=== PATIENT | female | born 1980 | race Caucasian/White ===

== ENCOUNTER 2018-10-07 07:30 | Inpatient (IN) | payer OTHER, SELFPAY ==
[2014-10-24 09:20] VITALS: BMI 35.1
[2018-10-07 07:42] VITALS: BMI 39.0
[2018-10-07] MEDS: Lactated Ringers 1,000 ML 50 ML IV (07:45)
[2018-10-07 07:57] LABS: Absolute Neutrophil Count 10.9 X10^3/uL (2.0-7.7); Absolute Nucleated RBC Count 0.02 10^3/uL (0-5); Basophil# 0.05 X10^3/uL; Basophil% 0.4 % (0-1); Eosinophil# 0.03 X10^3/uL; Eosinophils% 0.2 % (0-5); Hematocrit 28.5 % (37-47); Hemoglobin 8.4 g/dL (12.0-15.0); Lymphocyte % 12.1 % (19-41); Mean Corp Hgb Conc 29.5 g/dL (32-36); Mean Corpuscular Hgb 21.1 pg (27.0-32.0); Mean Corpuscular Volume 71.6 fL (81-99); Mean Platelet Vol. 11.7 fl (6.2-12.0); Monocyte# 0.58 X10^3/uL; Monocyte% 4.4 % (0-10); NRBC Flagged by Analyzer 0.2 % (0-5); Neutrophil # 10.85 X10^3/uL (2.7-7.7); Neutrophil % 82.2 % (47-70); Platelet Count 250 K/mm3 (150-450); RBC Distribution Width CV 16.2 % (11.6-14.6); RBC Distribution Width SD 41.4 fl (35.1-43.9); Red Blood Count 3.98 M/mm3 (4.2-5.4); White Blood Count 13.2 K/mm3 (4.4-11.0)
[2018-10-07] MEDS: Oxytocin 30 units/NS 500 ml 30 UNITS/500 ML IV.SOLN 334 UNITS IV (09:01)
--- NOTE | 2018-10-07 09:10 | OP.PCM_ITS ---
Vaginal Delivery Maternal Presentation: Active Labor Amniotic Membrane Rupture Type: Artificial Amniotic Fluid Description: Clear Final CARLOS: 10/05/18 Gestational age: 40 Weeks and 2 Days Date of Procedure: 10/07/18 Pre-Operative Diagnosis: IUP Post-Operative Diagnosis: IUP Surgery/ Procedure Performed: Spontaneous Vaginal Delivery Type of Anesthesia: None Description of Procedure: Spontaneous vaginal delivery of a viable female infant with Apgars of 9/9 from an occiput anterior presentation with clear amniotic fluid and normal three- vessel placenta. No episiotomy or laceration. Sponges okay. Delivery physician: Efrain Woodson MD. Presentation: Vertex Placental Delivery Description: Spontaneous Placenta Disposition: [facility] Cord Vessel Description: 3 Vessels Cord Gases drawn per routine: ABG Cord Entanglement: Around neck x 1, tight Estimated Blood Loss: 250 cc Infant A gender: Female (1 minute): 9 (5 minute): 9 Episiotomy Description: None Laceration: None Medications given after delivery: IV Pitocin Complications: None
--- NOTE | 2018-10-07 09:16 | DCINST_ITS ---
Discharge Diet: No Restrictions Discharge Activity: May Shower, May Take a Tub Bath May resume sexual activity in: 4-6 weeks Additional Activity Instructions:: Nothing in the vagina for 4-6 weeks. You may return to work/school in 6 weeks. Call your doctor if you observe: Fever of 101 or Higher, Inability to urinate, Inability to have a bowel movement, Using more than one pad per hour Additional Instructions: If you experience any of the following, contact your healthcare provider. * Bleeding that soaks a pad every hour for 2 hours * Unrelieved incision or abdominal pain * Swelling, redness, discharge or bleeding from your incision or episiotomy site * Your incision begins to separate * Problems urinating (including inability to urinate or burning while urinating). * Visual changes * Severe headache * Flu-like symptoms * Pain or redness in one of both of your breasts * Pain, warmth, tenderness or swelling in your legs, especially the calf area * Frequent nausea and vomiting * Symptoms of depression or anxiety If you experience any of the following, call 911 or go to the nearest Emergency Room. * Chest pain * Problems breathing * Seizure activity * Partial or complete paralysis of a body part, slurred speech, weakness or drooping of the face, or a sudden inability to walk or hold your balance Allergies/Adverse Reactions: Allergies budesonide [From Entocort EC] Allergy (Verified 10/07/18 07:43) Abd cramps/diarrhea oseltamivir phosphate [From Tamiflu] Allergy (Verified 10/07/18 07:43) Nausea/Vom/Diarrhea tramadol Allergy (Verified 10/07/18 07:43) Itching Medications to take at Discharge L.acidoph,Paracasei, B.lactis [Probiotic] 1 each PO 10/24/14 Pantoprazole Sodium 40 mg PO DAILY 10/24/14 Papaya [Papaya Enzyme] 1 each PO 10/24/14 Vits [Prenatabs FA ] 1 tablet PO DAILY 10/24/14 Please Follow Up With: Efrain Woodson MD - [phone] When: Call to make an appointment with your doctor in 6 weeks. Primary Care Physician: Clayton oTrres DO [Primary Care Provider] - Test Results: Test results from this visit will be discussed in further detail at your follow- up appointment, if applicable.
[2018-10-07] MEDS: Oxytocin 30 units/NS 500 ml 30 UNITS/500 ML IV.SOLN 167 UNITS IV (09:31)
[2018-10-07 11:12] VITALS: BP 124/58; PULSE 62; RESP 16; TEMP 37.2
[2018-10-07] MEDS: 0.9% Saline Lock 10 ML Syringe IV (11:19)
[2018-10-07 15:15] VITALS: BP 103/51; PULSE 73; RESP 14; TEMP 37.4
[2018-10-07 20:50] VITALS: BP 126/47; PULSE 57; RESP 16; TEMP 36.9
[2018-10-07] MEDS: Acetaminophen 500 MG Tablet 1000 MG PO (23:09)
[2018-10-08 01:20] VITALS: BP 123/63; PULSE 58; RESP 16; TEMP 36.9
[2018-10-08 04:05] VITALS: BP 128/56; PULSE 61; RESP 16; TEMP 36.7
[2018-10-08 07:55] VITALS: BP 121/62; PULSE 70; RESP 16; TEMP 36.4; O2SAT 99
[2018-10-08 14:00] VITALS: BP 121/60; PULSE 70; RESP 16; TEMP 36.9; O2SAT 98
[2018-10-08] MEDS: Dibucaine 30 GM Tube 1 APPLIC TOPICAL (17:47)
--- NOTE | 2018-10-08 18:17 | PCM.PN.OB ---
Subjective: Patient without complaints. Breast-feeding going well. Wants to go home later today if baby is able to go. - Physical Exam Vital Signs Temp Pulse Resp BP Pulse Ox 98.4 F 70 16 121/60 H 98 10/08/18 14:00 10/08/18 14:00 10/08/18 14:00 10/08/18 14:00 10/08/18 14:00 Oxygen Delivery Method Room Air Weight: 200 lb Body Mass Index (BMI) 39.0 Intake and Output for Last 24 Hours 10/06/18 10/07/18 10/08/18 23:59 23:59 23:59 Output Total 600 / 600 Balance -600 / -600 Medical Necessity - Tobacco Use Smoking Status: Former smoker Assessment/Plan Doing well day #1 status post routine spontaneous vaginal delivery. Will release to home later today.
[2018-10-08 20:06] VITALS: BP 135/74; PULSE 66; RESP 16; TEMP 36.6; O2SAT 98
== END 2018-10-08 21:15 | disposition home or self-care (01) | DRG 807 ==
PROVIDERS: Admitting Provider Obstetrics & Gynecology; Family Provider Family Medicine; PCP Family Medicine; Referring Provider Obstetrics & Gynecology; Visit Provider Obstetrics & Gynecology
DX: O69.1XX0 Labor and delivery complicated by cord around neck, with compression, not applicable or unspecified (principal); Z37.0 Single live birth; O99.820 Streptococcus B carrier state complicating pregnancy; Z3A.40 40 weeks gestation of pregnancy; Z87.891 Personal history of nicotine dependence
CPT/HCPCS: 59025; 59050; 85025; 86850; 86870; 86900; 86902; 86905; 86920; 86922; 99218; J7120; A4216; G0378

== ENCOUNTER → 2020-08-03 16:53 | Outpatient (CLI) | payer OTHER, SELFPAY ==
[2020-08-07 20:30] LABS: HPV Reflexed? NOT INDICATED
== END ==
PROVIDERS: PCP Family Medicine; Visit Provider Obstetrics & Gynecology
DX: Z12.4 Encounter for screening for malignant neoplasm of cervix (principal)
CPT/HCPCS: 88175; G0145

== ENCOUNTER 2020-11-02 11:24 | Emergency (ER) | payer OTHER, SELFPAY ==
[2020-11-02 11:25] VITALS: BP 127/73; PULSE 100; RESP 18; TEMP 36.6; O2SAT 98; BMI 36.1
--- NOTE | 2020-11-02 12:05 | EX.ED.DYSGE1 ---
HPI History of Present Illness Chief Complaint: Shortness of Breath Informant: patient Narrative Narrative: Patient is a 41-year-old female with a past medical history of Crohn's disease who presents to the emergency department for suspected Covid infection. She states that her tested positive and her children have similar symptoms. She has not been vaccinated. She has had a severe cough that is mostly dry. He has been having body aches, headache, nausea/vomiting. She has been taking Phenergan and Zofran at home. The Zofran seems to make her heartburn worse. She has lost 12 pounds. Her PCP was concerned she is dehydrated so sent her into the emergency department. Patient states that her problem is currently are at her baseline. She denies any urinary symptoms. Her PCP did put her on prednisone. [facility] Medical History (Updated 11/02/20 @ 14:[address] Bertram Carne DO) Crohn disease Home Medications L.acidoph, paracasei,B. lactis 1 ea PO 10/24/14 [History Last Taken Unknown] Pantoprazole Sodium 40 mg PO DAILY 10/24/14 [History Last Taken 10/23/14 10:00 1] carica papaya [Papaya Enzyme] 1 ea PO 10/24/14 [History Last Taken 10/23/14 18:00 1] [id number] [Prenatabs FA] 1 tab PO DAILY 10/24/14 [History Last Taken 10/23/14 10:00 1] promethazine 25 mg PO Q6H PRN 3 Days #10 tab 11/02/20 [Rx Last Taken Unknown] Allergy/AdvReac Type Severity Reaction Status Date / Time budesonide [From Entocort EC] Allergy Abd Verified 11/02/20 11:28 cramps/diarrhea oseltamivir phosphate Allergy Nausea/Vom/ Verified 11/02/20 11:28 [From Tamiflu] Diarrhea tramadol Allergy Itching Verified 11/02/20 11:28 Social History Smoking Status: Former smoker ROS ROS ED Constitutional Constitutional ED: Reports chills and fever(s) Eyes Eyes: Denies change in vision ENT ENT ED: Denies epistaxis Cardiovascular Cardiovascular: Denies chest pain or palpitations Respiratory/Chest Respiratory/Chest: Reports cough; Denies dyspnea or dyspnea on exertion Gastrointestinal Gastrointestinal: Reports nausea and vomiting; Denies abdominal pain or diarrhea Genitourinary Genitourinary ED: Denies dysuria or urinary frequency Musculoskeletal Musculoskeletal: Denies back pain or neck pain Integumentary Denies rash Neurologic Neurologic: Reports headache(s); Denies dizziness or weakness EXAM Physical Exam Const Vital Signs: 11/02/20 11:25 11/02/20 13:25 11/02/20 13:55 Temperature 97.9 F Temperature Source Temporal Pulse Rate 100 85 Respiratory Rate 18 16 Respiratory Effort Normal Non-Labored Respiratory Depth Normal Respiratory Pattern Normal Blood Pressure 127/73 H 119/74 Blood Pressure Mean 91 89 Pulse Ox 98 99 Oxygen Delivery Method Room Air Room Air Room Air Positive well nourished and well developed General Appearance ED: well developed and NAD HEENT Reports normocephalic and head/scalp atraumatic Eyes PERRL and EOMs intact bilaterally Neck supple Chest Wall inspection of chest normal Resp normal respiratory effort and clear to auscultation bilaterally Auscultation: Negative for rales, rhonchi or wheezes Cardio regular rate, regular rhythm and no murmurs GI normal to inspection, nondistended, normoactive bowel sounds and non-tender Palpation: soft; Negative for guarding or rebound tenderness present Extremity General Extremety ED: Negative for edema or tenderness General Extremity: Negative for edema Neuro Sensorium / Orientation: alert Motor Exam: strength 5/5 throughout Psych mental status grossly normal Skin no rashes or lesions noted MDM MDM MDM Narrative Medical decision making narrative: Patient presents to the emergency department for Covid symptoms. She has not tested positive but her other family members that she lives with has. On arrival to the emergency department vital signs are within normal limits. She is in no acute distress. She is concerned because she has not been able to keep anything down. She is otherwise satting 98% on room air. She is afebrile. We will treat her symptomatically with a dose of IV fluids, Zofran. Will check basic lab work. Chest x-ray did not reveal any acute abnormality. Rapid antigen is negative. This is likely a false negative given the length of her symptoms. She is not anemic. She does not have a high white blood cell count. No significant acute electrolyte disturbance. On reexamination she is resting comfortably. She is still not feeling well but does feel it is manageable at home. We will write a prescription for Phenergan as this seemed to help better than the Zofran. She is to follow-up with her PCP. Return precautions are reviewed with her. She is discharged home in stable condition. All questions were answered. Lab Data Labs: Laboratory Results - last 24 hr 11/02/20 11/02/20 12:18 12:18 WBC 5.8 RBC 5.25 Hgb 13.0 Hct 41.1 MCV 78.3 L MCH 24.8 L MCHC 31.6 L RDW Std Deviation 43.4 RDW Coeff of Jacoby 15.3 H Plt Count 180 MPV 11.5 Immature Gran % (Auto) 0.200 Neut % (Auto) 79.4 H Lymph % (Auto) 13.9 L [place] % (Auto) 6.3 Eos % (Auto) 0.0 Baso % (Auto) 0.2 Absolute Neuts (auto) 4.6 Absolute Lymphs (auto) 0.80 L Nucleated RBC % 0 Sodium 135 L Potassium 3.3 L Chloride 99 Carbon Dioxide 28.0 Anion Gap 8 BUN 14 Creatinine 0.88 Estim Creat Clear Calc 62.26 Est GFR (MDRD) Af Amer 92 Est GFR (MDRD) Non-Af 76 BUN/Creatinine Ratio 15.9 Glucose 104 Calcium 9.0 Total Bilirubin 0.40 AST 31 ALT 28 Alkaline Phosphatase 81 Total Protein 8.5 H Albumin 3.8 Globulin 4.7 H Albumin/Globulin Ratio 0.8 L Radiography Diagnostic Testing: Radiology Impression Chest X-Ray 11/02/20 13:14 IMPRESSION: Normal x-ray examination of the chest. Electronically Signed: Kirk Mullen MD at 13:51 EDT , Service support , Discharge Plan Triage Chief Complaint: Shortness of Breath ED Provider: Bertram Crane Dx/Rx/DC Orders Clinical Impression: Cough, Nausea & vomiting Instructions: ED Vomiting (Adult) Prescriptions: New promethazine 25 mg tablet 25 mg PO Q6H PRN (Reason: nausea and vomiting) 3 Days Qty: 10 RF: 0 No Action carica papaya [Papaya Enzyme] 1 EACH tablet,chewable 1 ea PO RF: 0 vit,[id number] [Prenatabs FA] 1 TABLET tablet 1 tab PO DAILY RF: 0 L.acidoph, paracasei,B. lactis 1 EACH capsule 1 ea PO RF: 0 Pantoprazole Sodium 40 mg PO DAILY RF: 0 Primary Care Provider: Clayton Torres Referrals: Clayton Torres DO [Primary Care Provider] - Disposition Disposition: Home, Self Care
[2020-11-02 12:22] LABS: Absolute Neutrophil Count 4.6 X10^3/uL (2.0-7.7); Basophil# 0.01 X10^3/uL; Basophil% 0.2 % (0-1); Hematocrit 41.1 % (37-47); Lymphocyte % 13.9 % (19-41); Mean Corp Hgb Conc 31.6 g/dL (32-36); Mean Corpuscular Hgb 24.8 pg (27.0-32.0); Mean Corpuscular Volume 78.3 fL (81-99); Mean Platelet Vol. 11.5 fl (6.2-12.0); Monocyte# 0.36 X10^3/uL; Monocyte% 6.3 % (0-10); NRBC Flagged by Analyzer 0 % (0-5); Neutrophil # 4.58 X10^3/uL (2.7-7.7); Neutrophil % 79.4 % (47-70); Platelet Count 180 K/mm3 (150-450); RBC Distribution Width CV 15.3 % (11.6-14.6); RBC Distribution Width SD 43.4 fl (35.1-43.9); Red Blood Count 5.25 M/mm3 (4.2-5.4); White Blood Count 5.8 K/mm3 (4.4-11.0)
[2020-11-02 12:36] LABS: ALB/GLOB Ratio 0.8 RATIO (0.9-2.4); AST(SGOT) 31 U/L (15-37); Alanine Aminotransfer ALT/SGPT 28 U/L (13-56); Albumin, Serum 3.8 g/dL (3.2-5.0); Alkaline Phosphatase 81 U/L (45-117); Anion Gap 8 (5-15); BUN 14 mg/dL (7-18); BUN/Creat Ratio 15.9 RATIO (10-20); Chloride 99 mmol/L (98-107); Creatinine, Serum 0.88 mg/dL (0.55-1.02); EST Glomerular Filtration Rate 76 mL/min (>60); Est Glom Filt Rate - Afr Amer 92 mL/min (>60); Estimated Creatinine Clearance 62.26 ml/min; Globulin 4.7 g/dL (2.2-4.2); Glucose 104 mg/dL (74-106); Potassium 3.3 mmol/L (3.5-5.1); Protein, Total 8.5 g/dL (6.4-8.2); Sodium Level 135 mmol/L (136-145)
[2020-11-02] MEDS: Ondansetron 4 MG/2 ML Vial IV (13:04)
--- NOTE | 2020-11-02 13:14 | RAD_ITS ---
STUDY: X-RAY CHEST REASON FOR EXAM: Female, 40 years old. Cough, covid exposure TECHNIQUE: Single AP portable view of the chest. COMPARISON: None. FINDINGS: The lungs are clear and expanded. There is no demonstrated pleural abnormality. Normal size heart. Normal mediastinum and dennis. Normal visualized pulmonary arteries. Normal visualized aortic arch and descending thoracic aorta. Normal visualized thoracic spine. Normal visualized ribs, clavicles, and shoulders. There is no demonstrated abnormality of the visualized soft tissue structures of the upper abdomen. RAD/Chest 1 View (Portable) IMPRESSION: Normal x-ray examination of the chest. Electronically Signed: Kirk Mullen MD at 13:51 EDT , Service support ,
[2020-11-02 13:25] VITALS: BP 119/74; PULSE 85; RESP 16; O2SAT 99
[2020-11-02 13:55] VITALS: O2SAT 99
[2020-11-02 14:41] VITALS: BP 121/74; PULSE 73; RESP 16; O2SAT 100
== END 2020-11-02 14:41 | disposition home or self-care (01) ==
PROVIDERS: Emergency Provider Emergency Medicine; PCP Family Medicine
DX: R05 Cough (principal); R11.2 Nausea with vomiting, unspecified; R06.02 Shortness of breath; Z79.52 Long term (current) use of systemic steroids; Z87.891 Personal history of nicotine dependence
CPT/HCPCS: 71045; 80053; 85025; 87426; 96361; 96374; 99283; J7030; A4216; J2405

== ENCOUNTER → 2022-04-26 | Outpatient (CLI) | payer BC, SELFPAY ==
[2022-04-26 17:46] LABS: Absolute Lymphocyte Count 2.38 X10^3/uL (0.83-4.51); Absolute Neutrophil Count 6.2 X10^3/uL (2.0-7.7); Basophil# 0.05 X10^3/uL; Basophil% 0.5 % (0-1); Eosinophil# 0.07 X10^3/uL; Eosinophils% 0.8 % (0-5); Hematocrit 39.5 % (37-47); Hemoglobin 12.2 g/dL (12.0-15.0); Lymphocyte # 2.38 X10^3/ul (0.83-4.51); Lymphocyte % 25.7 % (19-41); Mean Corp Hgb Conc 30.9 g/dL (32-36); Mean Corpuscular Hgb 26.9 pg (27.0-32.0); Mean Platelet Vol. 12.2 fl (6.2-12.0); Monocyte# 0.51 X10^3/uL; Monocyte% 5.5 % (0-10); NRBC Flagged by Analyzer 0 % (0-5); Neutrophil # 6.24 X10^3/uL (2.7-7.7); Neutrophil % 67.3 % (47-70); Platelet Count 307 K/mm3 (150-450); RBC Distribution Width CV 14.8 % (11.6-14.6); RBC Distribution Width SD 47.7 fl (35.1-43.9); Red Blood Count 4.54 M/mm3 (4.2-5.4); White Blood Count 9.3 K/mm3 (4.4-11.0)
[2022-04-26 18:41] LABS: Vitamin B12 339 pg/mL (211-911)
[2022-04-26 18:42] LABS: Ferritin 10 ng/mL (8-252); Iron 25 ug/dL (50-170)
== END | disposition home or self-care (01) ==
LOC: BFHLAB 16:11
PROVIDERS: PCP Family Medicine; Visit Provider Family Medicine
DX: D64.9 Anemia, unspecified (principal); E53.8 Deficiency of other specified B group vitamins
CPT/HCPCS: 36415; 82607; 82728; 83540; 85025

== ENCOUNTER → 2023-04-09 | Outpatient (CLI) | payer BC, SELFPAY ==
--- NOTE | 2023-04-09 12:42 | BI_ITS ---
MAMMOGRAPHY - BILATERAL SCREENING REASON FOR EXAM: Female, 42 years old. Routine annual screening examination. PERTINENT HISTORY: Aunt with breast cancer. TECHNIQUE: Digital bilateral breast kalyn (3D mammographic acquisition) in the CC and MLO projections. 2-D mediolateral oblique (MLO) and craniocaudad (CC) views of both breasts were obtained. CAD: Full Field Digital Mammography with Computer Added Detection was performed. COMPARISON: None. FINDINGS: Breast Composition: There is an 8.3 mm x 8.2 mm well-defined nodule in the upper lateral aspect of the right breast. Correlation with ultrasound is recommended. There are 2 adjacent well-defined nodules measuring 5.6 mm in the upper lateral aspect of the left breast. Correlation with ultrasound is recommended. No other significant abnormalities are identified. BI/SCRN MAMM (CAD)W/KALYN BILAT IMPRESSION: Bilateral breast nodules as described. Correlation with ultrasound is recommended for further evaluation. ASSESSMENT CATEGORY: BIRADS Category 0: Incomplete. Need additional imaging evaluation. A letter regarding these results will be sent to the patient by the facility within 30 days. Approximately 10% of breast cancers are not detected by mammography. A normal mammogram should not delay biopsy of a clinically suspicious abnormality. [id number] Electronically Signed: Kirk Mullen MD at 15:01 EST ,
== END | disposition home or self-care (01) ==
LOC: OPBI 12:41
PROVIDERS: PCP Family Medicine; Referring Provider Family Medicine; Visit Provider Family Medicine
DX: Z12.31 Encounter for screening mammogram for malignant neoplasm of breast (principal)
CPT/HCPCS: 77063; 77067

== ENCOUNTER → 2023-04-17 | Outpatient (CLI) | payer BC, SELFPAY ==
--- NOTE | 2023-04-17 13:57 | US_ITS ---
STUDY: ULTRASOUND BREAST - RIGHT REASON FOR EXAM: Female, 42 years old. Abnormal screening mammogram. TECHNIQUE: Axial and longitudinal images of the RIGHT breast were performed with a high resolution ultrasound transducer. # OF IMAGES: 77 COMPARISON: Comparison is made with prior mammogram dated October 08, 2023. FINDINGS: RIGHT Breast: The upper outer quadrant of the right breast was examined with ultrasound. There is a 7 mm x 8 mm x 4 mm well-defined benign-appearing lymph node at the 10:00 position of the breast at 7 cm from the nipple. There is also evidence of a 3 mm x 4 mm x 3 mm cyst at the 11:00 position of the breast at 4 cm from the nipple. IMPRESSION: Benign-appearing lymph node and small cyst in the upper outer quadrant of the right breast. ASSESSMENT CATEGORY: BIRADS Category 2: Benign. A letter regarding these results will be sent to the patient by the facility within 30 days. Electronically Signed: Kirk Mullen MD at 14:30 EST , STUDY: ULTRASOUND BREAST - LEFT REASON FOR EXAM: Female, 42 years old. Abnormal screening mammogram. TECHNIQUE: Axial and longitudinal images of the LEFT breast were performed with a high resolution ultrasound transducer. # OF IMAGES: 77 COMPARISON: Comparison is made with prior mammogram dated April 09, 2023. FINDINGS: LEFT Breast: The upper-outer quadrant of the left breast was examined with ultrasound. 2 subcentimeter benign-appearing lymph nodes are seen in the upper-outer quadrant. US/Breast Limited Unilateral IMPRESSION: The mammographic abnormality corresponds to 2, subcentimeter adjacent benign-appearing lymph nodes. ASSESSMENT CATEGORY: BIRADS Category 2: Benign. A letter regarding these results will be sent to the patient by the facility within 30 days. Electronically Signed: Kirk Mullen MD at 14:31 EST ,
== END | disposition home or self-care (01) ==
PROVIDERS: PCP Family Medicine; Referring Provider Family Medicine; Visit Provider Family Medicine
DX: R92.8 Other abnormal and inconclusive findings on diagnostic imaging of breast (principal); N63.10 Unspecified lump in the right breast, unspecified quadrant; N63.20 Unspecified lump in the left breast, unspecified quadrant
CPT/HCPCS: 76642

== ENCOUNTER → 2024-01-01 | Outpatient (CLI) | payer BC, SELFPAY ==
[2024-01-06 14:09] LABS: HPV APTIMA, High Risk Negative (Negative)
== END | disposition home or self-care (01) ==
LOC: LABSPEC 16:51
PROVIDERS: PCP Family Medicine; Visit Provider Advanced Practice Midwife
DX: Z12.4 Encounter for screening for malignant neoplasm of cervix (principal)
CPT/HCPCS: 87624; 88175; G0145